=== PATIENT | female | born 1935 ===

== ENCOUNTER → 2018-11-13 | Day surgery (SDC) | payer OTHER ==
[~2018-11-13] MED LIST: LEVOTHY PO; METFOR PO; METFORMIN HCL850 MG PO; SYNTHROID75 MCG PO
== END | disposition home or self-care (01) ==
LOC: EDSTATUS 11-09 12:15 → O/R 11-09 12:15 → CIR.AMB 07:00
DX: S52.532A Colles' fracture of left radius, initial encounter for closed fracture (principal)
CPT/HCPCS: 25609; 25118; 25280; C1776